=== PATIENT | female | born 1975 | race American Indian/Alaskan Native ===

== ENCOUNTER 2017-09-05 11:52 | Emergency (ER) | payer MEDICAID ==
[2017-09-05 12:01] VITALS: BP 157/99
== END 2017-09-05 16:45 | disposition left against medical advice (07) ==
LOC: ED 11:52
DX: R07.9 Chest pain, unspecified (principal); Z53.21 Procedure and treatment not carried out due to patient leaving prior to being seen by health care provider
CPT/HCPCS: 93005; 93010

== ENCOUNTER 2020-08-27 11:39 | Emergency (ER) | payer OTHER ==
[2020-08-27 11:47] VITALS: BP 152/89
[2020-08-27] MEDS ORDERED: DIPHtheria,PERTUSSIS(ACELL),TETANUS VACCINE/PF 0.5 ML VIAL IM ONE (12:15)
[2020-08-27] MEDS ORDERED: oxyCODONE /ACETAMINOPHEN 5-325MG TAB PO ONE (12:16)
[2020-08-27] MEDS ORDERED: ONDANSETRON 4 MG ODT TAB PO ONE (12:16)
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
[2020-08-27 12:56] LABS: Hematocrit 38.1 % (30.3-42.9); Hemoglobin 12.3 gm/dl (10.1-14.3); Mean Corpuscular HGB Conc 32 % (30-34); Mean Corpuscular Volume 85 fl (79-97); Platelet Count 285 K/mm3 (140-440); Red Blood Count 4.51 M/mm3 (3.65-5.03); Red Cell Distribution Width 12.8 % (13.2-15.2)
[2020-08-27 13:14] LABS: BUN/Creatinine Ratio 23; Blood Urea Nitrogen 18 mg/dL (7-17); Calcium 9.2 mg/dL (8.4-10.2); Hemolysis Index 19
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
[2020-08-27 13:30] LABS: Large Platelets Few; Platelet Estimate Consistent w Auto; RBC Morphology Normal; Total Cells Counted 100
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
[2020-08-27] MEDS ORDERED: IBUPROFEN 600 MG TAB PO ONE (16:15)
[2020-08-27] MEDS ORDERED: KETOROLAC 30 MG/1 ML INJ IV ONE (16:31)
== END 2020-08-27 16:52 | disposition home or self-care (01) ==
LOC: ED 11:39
DX: S92.101A Unspecified fracture of right talus, initial encounter for closed fracture (principal); S83.92XA Sprain of unspecified site of left knee, initial encounter; S83.91XA Sprain of unspecified site of right knee, initial encounter; S20.219A Contusion of unspecified front wall of thorax, initial encounter; I10 Essential (primary) hypertension; Z98.890 Other specified postprocedural states; Z90.89 Acquired absence of other organs; Z79.1 Long term (current) use of non-steroidal anti-inflammatories (NSAID); Z79.899 Other long term (current) drug therapy; V49.49XA Driver injured in collision with other motor vehicles in traffic accident, initial encounter; W22.10XA Striking against or struck by unspecified automobile airbag, initial encounter; Y93.89 Activity, other specified; Y92.410 Unspecified street and highway as the place of occurrence of the external cause; Y99.8 Other external cause status
CPT/HCPCS: 29515; 36415; 71260; 73590; 73610; 73650; 80048; 85007; 85025; 90471; 90715; 96374; 99284; J1885; Q9967; Q0162